=== PATIENT | female | born 1960 | race Caucasian/White ===

== ENCOUNTER 2017-12-06 11:23 | Observation (INO) | payer MEDICARE, MEDICAID ==
[2017-12-06 12:31] LABS: ABS Basophils 0.1 10^3/ul (0-0.2); ABS Eosinophils 0.4 10^3/ul (0-0.6); ABS Lymphocytes 1.3 10^3/ul (1.0-4.8); ABS Monocytes 0.6 10^3/ul (0-0.8); ABS Neutrophils 5.2 10^3/ul (1.5-7.7); ABS Nucleated RBC 0 10^3/ul; Eosinophil % 5.6 % (0-6); Hematocrit 37 % (35-47); Hemoglobin 11.9 g/dl (12.0-16.0); Lymphocyte % 16.9 % (25-47); Mean Corpuscular HGB Conc 32 g/dl (31-36); Mean Corpuscular Hemoglobin 24 pg (27-31); Mean Corpuscular Volume 76 fL (80-97); Mean Platelet Volume 8.1 um3 (7.4-10.4); Nucleated Red Blood Cells % 0; Platelet Count 311 10^3/ul (150-450); Red Blood Count 4.89 10^6/ul (4.0-5.4); Red Cell Distribution Width 16 % (10.5-15); White Blood Count 7.6 10^3/ul (3.5-10.8)
[2017-12-06] MEDS ORDERED: NS 0.9% 1000 ML* 1,000 ML IV ONE (12:43)
[2017-12-06] MEDS ORDERED: Metoclopramide IV* 5 MG/ML 2 ML VIAL IV ONE (12:43)
[2017-12-06 13:08] LABS: EGFR Non-African American 58.9 (>60)
[2017-12-06 13:32] LABS: Urine Appearance Cloudy; Urine Blood Negative (Negative); Urine Color Yellow; Urine Ketones Negative (Negative); Urine Protein Negative (Negative); Urine Red Blood Cell Absent (Absent); Urine Urobilinogen Negative (Negative); Urine White Blood Cell 3+(>20/hpf) (Absent)
[2017-12-06 13:42] LABS: INR 1.06 (0.77-1.02)
[2017-12-06] MEDS ORDERED: Iodixanol* (CONTRAST) 320 MG/ML 100 ML SDV IV ONE (14:48)
[2017-12-06] MEDS ORDERED: Promethazine INJ(RESTRICTED)* 25 MG/ML 1 ML VIAL IV ONE (15:12)
[2017-12-06] MEDS ORDERED: Ondansetron INJ* 2 MG/ML VIAL IV ONE (15:21)
[2017-12-06] MEDS ORDERED: Ondansetron 40 MG VIAL* 2 MG/ML 20 ML VIAL IV ONE (15:30)
--- NOTE | 2017-12-06 16:40 | RAD ---
Indication: Colon cancer, abdominal pain, nausea and vomiting. Contrast: Administered 82.0 ml of Contrast -- mg/ml CTA of the chest was performed after IV contrast administration. Coronal and sagittal reconstructed images were obtained. There are no prior studies available for comparison. The inferior thyroid lobes demonstrates a large hypodense lesion in the lower pole of the left lobe measuring up to 2.5 cm. Correlation with thyroid ultrasound is suggested a nonemergent basis. The pulmonary arterial tree is well opacified. There are no filling defects present to suggest pulmonary embolus. The aorta demonstrates no evidence of aortic dissection. No aneurysmal dilatation is noted. The trachea and major bronchi appear patent. The lung brenner demonstrate no evidence of pleural fluid, nodules or masses. Heart is of normal size without evidence of pericardial effusion. The bony structures are grossly unremarkable. CT of the abdomen and pelvis was performed after oral and IV contrast administration. The liver is normal in size. There are multiple low density lesions scattered throughout both lobes of the liver consistent with metastatic disease. In the dome of the right lobe the largest lesion measures up to 2.1 cm. Lesion in the medial segment of left lobe measures up to 10 mm. Inferior right lobe is an additional lesion measuring 18 mm. Posterior right lobe measures up to 18 mm. Other smaller noncystic lesions are noted in the liver. The spleen is normal in size. The pancreas demonstrates no mass or pancreatic duct dilatation. The common duct is not dilated. The patient is status post cholecystectomy. No retroperitoneal adenopathy is noted. No adrenal masses are noted. The kidneys demonstrate symmetric nephrograms without hydronephrosis. No dilated loops of bowel are noted. Aorta and inferior vena cava are unremarkable. No retroperitoneal adenopathy is noted. There is diverticulosis of the sigmoid colon without definite evidence of diverticulitis. The appendix is grossly unremarkable. There is a right ovarian cyst measuring up to 3.5 cm. The uterus and left ovary are unremarkable. Urinary bladder is unremarkable. No hernias are noted. No pelvic adenopathy is identified. The urinary bladder is unremarkable. There is a right ovarian cyst measuring up to 3.5 cm. IMPRESSION: No evidence of pulmonary embolus is noted. No evidence of aortic dissection is noted. Multiple low density lesions in the liver consistent with metastatic disease. No prior study is available for comparison. Patient is status post cholecystectomy. There is a low density mass in the left lobe of the thyroid. This measures up to 2.5 cm.
[2017-12-06] MEDS ORDERED: Aspirin 81 mg CHEW TAB* 81 MG TAB.CHEW PO ONE (17:23)
--- NOTE | 2017-12-06 17:57 | ED ---
Carlos Walton Jennifer, scribed for Chelsea Santamaria MD on 12/06/17 at 1234 . HPI Chest Pain - HPI Summary HPI Summary: The patient is a 57 year old female who presents with nausea and vomiting 2-3 weeks ago with newly developed chest pain about one hour ago. The patient describes the chest pain as constant tightness that increases and decreases in severity. She additionally complains of trouble breathing, abdominal pain, and decreased appetite. The patient has a history of colon cancer and is currently being treated. She denies fever. - History of Current Complaint Chief Complaint: EDChestPainROMI Time Seen by Provider: 12/06/17 12:11 Hx Obtained From: Patient Onset/Duration: Started Hours Ago - chest pain began one hour ago, Started Weeks Ago - nausea, vomiting began 2-3 weeks ago, Still Present, Worse Since Timing: Constant Initial Severity: Severe Current Severity: Severe Pain Intensity: 10 Pain Scale Used: 0-10 Numeric Chest Pain Location: Left Anterior Chest Pain Radiates: No Character: Tightness Aggravating Factor(s): Nothing Alleviating Factor(s): Nothing Associated Signs and Symptoms: Positive: Other: - nausea, vomiting, chest pain, trouble breathing, abdominal pain, decreased appetite. NEGATIVE: fever - Allergy/Home Medications Allergies/Adverse Reactions: Allergies Allergy/AdvReac Type Severity Reaction Status Date / Time aspirin Allergy Hives Verified 12/06/17 12:13 latex Allergy Hives Verified 12/06/17 11:30 Penicillins Allergy Anaphylatic Verified 12/06/17 11:30 Shock tramadol Allergy Anaphylatic Verified 12/06/17 11:30 Shock Home Medications: Home Medications Albuterol HFA INHALER* [Ventolin HFA Inhaler*] 2 puff INH .Q4-6H PRN 12/06/17 [ History Confirmed 12/06/17] Baclofen TAB* [Lioresal TAB*] 10 mg PO TID 12/06/17 [History Confirmed 12/06/17] Budesonide/Formote 80/4.5(NF) [Symbicort 80/4.5 (NF)] 2 puff INH BID 12/06/17 [ History Confirmed 12/06/17] Diclofenac Sodium EC TAB* [Voltaren EC TAB*] 50 mg PO BID WITH MEALS 12/06/17 [ History Confirmed 12/06/17] Exenatide VIAL (NF) [Bydureon (NF)] 2 mg SUBCUT WEEKLY 12/06/17 [History Confirmed 12/06/17] Lisinopril/HCTZ 20/25(NF) [Zestoretic 20/25(NF)] 1 tab PO DAILY 12/06/17 [ History Confirmed 12/06/17] LoraTADine TAB(NF) [Claritin 10 MG TAB(NF)] 10 mg PO BEDTIME PRN 12/06/17 [ History Confirmed 12/06/17] Meloxicam(NF) [Mobic(NF)] 15 mg PO DAILY 12/06/17 [History Confirmed 12/06/17] Ondansetron ODT TAB* [Zofran 4 MG Odt TAB*] 4 mg PO Q8H PRN 12/06/17 [History Confirmed 12/06/17] Pravastatin (NF) [Pravachol (NF)] 20 mg PO BEDTIME 12/06/17 [History Confirmed 12/06/17] Triamcinolone 0.025% CM(NF) [Kenalog Cream 0.025%*] 1 applic TOPICAL BID [History Confirmed 12/06/17] Umeclidin 62.5 MDI(NF) [Incruse ELLIPTA MDI (NF)] 1 puff INH DAILY 12/06/17 [ History Confirmed 12/06/17] amLODIPine TAB* [Norvasc 5 mg TAB*] 5 mg PO DAILY 12/06/17 [History Confirmed ] PMH/Surg Hx/FS Hx/Imm Hx Endocrine/Hematology History: Reports: Hx Diabetes Denies: Other Endocrine/Hematological Disorders - blood clots Cardiovascular History: Reports: Hx Hypertension Denies: Hx Myocardial Infarction - Cancer History Cancer Type, Location and Year: Colon Cancer - 2009 - Surgical History Surgery Procedure, Year, and Place: Cholecystectomy Infectious Disease History: No Infectious Disease History: Denies: Traveled Outside the [place] in Last 30 Days - Family History Known Family History: Negative: Renal Disease - Social History Alcohol Use: None Substance Use Type: Reports: None Smoking Status (MU): Unknown if Ever Smoked Review of Systems Positive: Other - Decreased appetite. Negative: Fever Positive: Chest Pain Positive: Other - Trouble breathing Positive: Abdominal Pain, Vomiting, Nausea All Other Systems Reviewed And Are Negative: Yes Physical Exam - Summary Physical Exam Summary: GENERAL: ~Patient is a well developed and nourished F who is lying comfortable in the stretcher. ~Patient is not in any acute respiratory distress. HEAD AND FACE: Normocephalic EYES: PERRLA, EOMI x 2. EARS: Hearing grossly intact. MOUTH: Oropharynx within normal limits. NECK: Supple, trachea is midline, no adenopathy, no JVD, no carotid bruit. CHEST: Symmetric, no tenderness at palpation LUNGS: Clear to auscultation bilaterally. No wheezing or crackles. CVS: Regular rate and rhythm, S1 and S2 present, no murmurs or gallops appreciated. ABDOMEN: Soft, diffuse tenderness to palpation, worse in epigastric area. Bowel sounds are normal. No abdominal abnormal pulsations. EXTREMITIES: Full ROM in all major joints, no edema, no cyanosis or clubbing. NEURO: Alert and oriented x 3. No acute neurological deficits. Speech is normal and follows commands. SKIN: Dry and warm Triage Information Reviewed: Yes Vital Signs On Initial Exam: Initial Vitals Temp Pulse Resp BP Pulse Ox 97.4 F 90 14 104/62 96 12/06/17 11:31 12/06/17 11:31 12/06/17 11:31 12/06/17 11:31 12/06/17 11:31 Vital Signs Reviewed: Yes Diagnostics - Vital Signs Vital Signs Temp Pulse Resp BP Pulse Ox 12/06/17 11:31 97.4 F 90 14 104/62 96 - Laboratory Lab Results: Lab Results 12/06/17 12/06/17 12/06/17 Range/Units 12:04 12:04 12:04 WBC 7.6 (3.5-10.8) 10^3/ul RBC 4.89 (4.0-5.4) 10^6/ul Hgb 11.9 L (12.0-16.0) g/dl Hct 37 (35-47) % MCV 76 L (80-97) fL MCH 24 L (27-31) pg MCHC 32 (31-36) g/dl RDW 16 H (10.5-15) % Plt Count 311 (150-450) 10^3/ul MPV 8.1 (7.4-10.4) um3 Neut % (Auto) 68.3 (38-83) % Lymph % (Auto) 16.9 L (25-47) % Ripley % (Auto) 8.4 H (0-7) % Eos % (Auto) 5.6 (0-6) % Baso % (Auto) 0.8 (0-2) % Absolute Neuts (auto) 5.2 (1.5-7.7) 10^3/ul Absolute Lymphs (auto) 1.3 (1.0-4.8) 10^3/ul Absolute Monos (auto) 0.6 (0-0.8) 10^3/ul Absolute Eos (auto) 0.4 (0-0.6) 10^3/ul Absolute Basos (auto) 0.1 (0-0.2) 10^3/ul Absolute Nucleated RBC 0 10^3/ul Nucleated RBC % 0 INR (Anticoag Therapy) (0.77-1.02) APTT (26.0-36.3) seconds Sodium 138 L (139-145) mmol/L Potassium 3.5 (3.5-5.0) mmol/L Chloride 100 L (101-111) mmol/L Carbon Dioxide 31 (22-32) mmol/L Anion Gap 7 (2-11) mmol/L BUN 20 (6-24) mg/dL Creatinine 0.98 H (0.51-0.95) mg/dL Est GFR ( Amer) 75.8 (>60) Est GFR (Non-Af Amer) 58.9 (>60) BUN/Creatinine Ratio 20.4 H (8-20) Glucose 130 H (70-100) mg/dL Lactic Acid 1.1 (0.5-2.0) mmol/L Calcium 9.7 (8.6-10.3) mg/dL Total Bilirubin 1.10 H (0.2-1.0) mg/dL AST 43 H (13-39) U/L ALT 55 H (7-52) U/L Alkaline Phosphatase 105 H (34-104) U/L Troponin I 0.00 (<0.04) ng/mL Total Protein 7.2 (6.4-8.9) g/dL Albumin 3.9 (3.2-5.2) g/dL Globulin 3.3 (2-4) g/dL Albumin/Globulin Ratio 1.2 (1-3) Lipase 26 (11.0-82.0) U/L Urine Color Urine Appearance Urine pH (5-9) Ur Specific Distant (1.010-1.030) Urine Protein (Negative) Urine Ketones (Negative) Urine Blood (Negative) Urine Nitrate (Negative) Urine Bilirubin (Negative) Urine Urobilinogen (Negative) Ur Leukocyte Esterase (Negative) Urine WBC (Auto) (Absent) Urine RBC (Auto) (Absent) Ur Squamous Epith Cells (Absent) Urine Bacteria (Absent) Urine Glucose (Negative) 12/06/17 12/06/17 Range/Units 13:08 13:15 WBC (3.5-10.8) 10^3/ul RBC (4.0-5.4) 10^6/ul Hgb (12.0-16.0) g/dl Hct (35-47) % MCV (80-97) fL MCH (27-31) pg MCHC (31-36) g/dl RDW (10.5-15) % Plt Count (150-450) 10^3/ul MPV (7.4-10.4) um3 Neut % (Auto) (38-83) % Lymph % (Auto) (25-47) % Ripley % (Auto) (0-7) % Eos % (Auto) (0-6) % Baso % (Auto) (0-2) % Absolute Neuts (auto) (1.5-7.7) 10^3/ul Absolute Lymphs (auto) (1.0-4.8) 10^3/ul Absolute Monos (auto) (0-0.8) 10^3/ul Absolute Eos (auto) (0-0.6) 10^3/ul Absolute Basos (auto) (0-0.2) 10^3/ul Absolute Nucleated RBC 10^3/ul Nucleated RBC % INR (Anticoag Therapy) 1.06 H (0.77-1.02) APTT 28.8 (26.0-36.3) seconds Sodium (139-145) mmol/L Potassium (3.5-5.0) mmol/L Chloride (101-111) mmol/L Carbon Dioxide (22-32) mmol/L Anion Gap (2-11) mmol/L BUN (6-24) mg/dL Creatinine (0.51-0.95) mg/dL Est GFR ( Amer) (>60) Est GFR (Non-Af Amer) (>60) BUN/Creatinine Ratio (8-20) Glucose (70-100) mg/dL Lactic Acid (0.5-2.0) mmol/L Calcium (8.6-10.3) mg/dL Total Bilirubin (0.2-1.0) mg/dL AST (13-39) U/L ALT (7-52) U/L Alkaline Phosphatase (34-104) U/L Troponin I (<0.04) ng/mL Total Protein (6.4-8.9) g/dL Albumin (3.2-5.2) g/dL Globulin (2-4) g/dL Albumin/Globulin Ratio (1-3) Lipase (11.0-82.0) U/L Urine Color Yellow Urine Appearance Cloudy Urine pH 5.0 (5-9) Ur Specific Distant 1.020 (1.010-1.030) Urine Protein Negative (Negative) Urine Ketones Negative (Negative) Urine Blood Negative (Negative) Urine Nitrate Negative (Negative) Urine Bilirubin Negative (Negative) Urine Urobilinogen Negative (Negative) Ur Leukocyte Esterase 3+ A (Negative) Urine WBC (Auto) 3+(>20/hpf) A (Absent) Urine RBC (Auto) Absent (Absent) Ur Squamous Epith Cells Present A (Absent) Urine Bacteria Absent (Absent) Urine Glucose 3+(>=500 mg/dl) A (Negative) Result Diagrams: 12/06/17 12:04 12/06/17 12:04 Lab Statement: Any lab studies that have been ordered have been reviewed, and results considered in the medical decision making process. - CT Chest/Abdomen/Pelvis CTA CT Interpretation: No Acute Changes - No evidence of pulmonary embolus is noted. No evidence of aortic dissection is noted. Multiple low density lesions in the liver consistent with metastatic disease. No prior study is available for comparison. Patient is status post cholecystectomy. There is a low density mass in the left lobe of the thyroid. This measures up to 2.[address] Santamaria has reviewed this report. CT Interpretation Completed By: Radiologist - EKG 1139 Cardiac Rate: NL EKG Rhythm: Sinus Rhythm - 90 bpm EKG Interpretation: left axid deviation Chest Pain Course/Dx - Course Course Of Treatment: The patient is a 57 year old female who presents with nausea and vomiting 2-3 weeks ago with newly developed chest pain about one hour ago. In the ED course the patient was given Reglan and IV fluids. Bloodwork and urinalysis were obtained. Chest/Abdomen/Pelvis CTA showed No evidence of pulmonary embolus is noted. No evidence of aortic dissection is noted. Multiple low density lesions in the liver consistent with metastatic disease. No prior study is available for comparison. Patient is status post cholecystectomy. There is a low density mass in the left lobe of the thyroid. This measures up to 2.5 cm. The patient was diagnosed with chest pain and abdominal pain. The patient is admitted to [facility]. [facility] - Diagnoses Provider Diagnoses: Chest pain, Abdominal pain - Provider Notifications Discussed Care Of Patient With: Leela Guallpa Time Discussed With Above Provider: 17:00 Instructed by Provider To: Admit As Inpatient Discharge - Sign-Out/Discharge Documenting (check all that apply): Discharge/Admit/Transfer - Discharge Plan Condition: Good Disposition: ADMITTED TO [facility] Referrals: No Primary Care Phys,NOPCP [Medical Doctor] - - Billing Disposition and Condition Condition: GOOD Disposition: HOSP-[facility] The documentation as recorded by the Carlos rome Jennifer accurately reflects the service I personally performed and the decisions made by , Chelsea Santamaria MD.
[2017-12-06] MEDS ORDERED: Al Hydrox/Mg Hydrox/Simet LIQ* 30 ML UDC PO PRN (18:22)
[2017-12-06] MEDS ORDERED: Acetaminophen TAB* 325 MG PO PRN (18:22)
[2017-12-06] MEDS ORDERED: Ondansetron INJ* 2 MG/ML VIAL IV PRN (18:22)
[2017-12-06] MEDS ORDERED: NS 0.9% 1000 ML* 1,000 ML IV SCH (18:30)
[2017-12-06] MEDS: Baclofen TAB* 10 MG PO SCH (21:47)
[2017-12-06] MEDS: Heparin VIAL(*) 5000 UNITS/ML VIAL (FIVE THOUSAND) SUBCUT SCH (21:47)
[2017-12-06] MEDS ORDERED: Ciprofloxacin 400MG IVPREMIX(* 400 MG/200 ML BAG IVPB SCH (22:00)
[2017-12-06] MEDS: Mometasone/Formoter 100/5 MDI INH SCH (22:31)
[2017-12-06] MEDS: Albuterol HFA INHALER* 8 gm MDI INH PRN (22:31)
[2017-12-06] MEDS ORDERED: diPHENhydraMINE PO* 25 MG PO PRN (23:21)
[2017-12-06] MEDS ORDERED: Famotidine TAB* 20 MG PO ONE (23:21)
[2017-12-06] MEDS: cefTRIAXone VIAL(*) 1,000 MG in NS 0.9% 50 ML* 50 ML IVPB SCH (23:45)
--- NOTE | 2017-12-07 00:33 | HP ---
ADDENDUM NOW INCLUDED ON THIS REPORT HISTORY AND PHYSICAL: DATE OF ADMISSION: 12/06/17 TIME OF ADMISSION: 6:15 p.m. PRIMARY CARE PHYSICIAN: [facility]. CHIEF COMPLAINT: Chest pain, nausea, and vomiting for 1 month. HISTORY OF PRESENT ILLNESS: This is a 57-year-old female with history of metastatic colon cancer who is currently undergoing chemotherapy at [facility] who presents today with 1 month of nausea, vomiting, and chest pain. It was the chest pain that caused her to come to emergency department today. The pain is located on the left side of her chest and is described as a squeezing pain. It occurred when she was riding in the car with her daughter today at 11 a.m. The pain does not radiate. It is associated with shortness of breath. It is usually relieved with inhalers; however, today, she had not her inhaler with her. So, she came to the emergency department. It resolved when she was resting in the emergency department. No medication in particular made it better. It is not reproduced when she exerts herself. It is not associated with diaphoresis, lightheadedness, or palpitation. It has been occurring every day once a day around the same time in the morning for approximately 1 month. She reports that she has been to [facility] for the same thing, but she is not sure what tests they have done and no etiology has been uncovered. She also reports that during the same timeframe over the past month, she has had decreased appetite, a 10-pound weight loss and constant nausea and vomiting. She states she is unable to keep any food down except bananas and she has round the clock nausea and vomiting and states that her oncologist does not believe it is related to the cancer nor to the chemotherapy. Of note, she has been on the same chemotherapy for 8 years. PAST MEDICAL HISTORY: 1. Colon cancer, status post colectomy 8 years ago, now on chemotherapy with a once monthly injection of which she does not know the name. She last had chemotherapy injection on 11/22/17. She has known liver mets. 2. Cholecystectomy. 3. Diabetes mellitus. 4. Hypertension. 5. Asthma. 6. COPD. HOME MEDICATIONS: 1. Albuterol 2 puffs inhaled q.4 p.r.n. wheezing. 2. Norvasc 5 mg daily. 3. Baclofen 10 mg t.i.d. 4. Symbicort 2 puffs b.i.d. 5. Voltaren 50 mg b.i.d. 6. Exenatide 2 mg subcutaneous weekly. 7. Lisinopril/HCTZ 20/25 one tab daily. 8. Loratadine 10 mg q.h.s. 9. Mobic 15 mg daily. 10. Zofran 4 mg q.8 p.r.n. nausea. 11. Pravastatin 20 mg q.h.s. 12. Triamcinolone topical b.i.d. 13. Ellipta 1 puff inhaled daily. SOCIAL HISTORY: She lives with her son in [place]. She is retired from working at [employer]. She watches her grandson regularly and is fairly active since he is a toddler. She has never been a smoker and she has never been a drinker. REVIEW OF SYSTEMS: She denies fevers, chills. Positive for nausea and vomiting. Positive for diarrhea in the past week. Negative for headache, blurry vision, hemoptysis, abdominal pain, weakness, numbness, or tingling. PHYSICAL EXAMINATION GENERAL: Alert female, in no distress. VITAL SIGNS: Temperature 97.4, heart rate 96, respiratory rate 14, pulse ox 94 % on room air, blood pressure 108/92. HEENT: Pupils equal, round, and reactive to light. No conjunctival injection. No sinus tenderness. Moist oral mucosa. No pharyngeal exudates or erythema. NECK: No cervical or supraclavicular lymphadenopathy. No JVP. LUNGS: Clear bilaterally. No wheezes or rhonchi. CHEST: Tachycardic. No murmurs. PMI nondisplaced. ABDOMEN: Soft, nontender, nondistended. No CVA tenderness. EXTREMITIES: No rashes or ulcers. No edema. NEUROLOGIC: Strength 5/5 throughout. Sensation intact. LABORATORY DATA: Sodium 138, potassium 3.5, chloride 100, bicarb 31, BUN 20, creatinine 0.98, glucose 130. Total bilirubin 1.10. AST 43, ALT 55, alk phos 105. Troponin 0.00. Urinalysis, 3+ leuk esterase, 3+ white blood cells, 3+ glucose. White blood cells 7.6, hemoglobin 11.9, platelets 311. IMAGING: CTA chest, abdomen, and pelvis shows no evidence of PE, no evidence of aortic dissection, multiple low density lesions in the liver consistent with metastatic disease. No prior study available for comparison. The patient is status post cholecystectomy. There is a low-density mass in the left lobe of the thyroid. This measures 2.5 cm. ASSESSMENT AND PLAN: This is a 57-year-old female, currently undergoing chemotherapy for metastatic colon cancer who presents with 1 month of chest pain , nausea, and vomiting. 1. Atypical chest pain. Her symptoms are atypical; however, given her history of diabetes and risk factors, underlying coronary artery disease is certainly possible; however, given the fact that this pain has been going on for 1 month, I do not believe this is acute coronary syndrome and trending troponins is unlikely to be revealing. Since her pain has been ongoing for 1 month and is related in time course to 1 month of nausea and vomiting as well, I suspect she has an esophagitis or other GI etiology as opposed to acute coronary syndrome. Her EKG has no ischemic changes and she has good exercise tolerance without angina. I wanted her on telemetry overnight and check another troponin, but I have a low suspicion for a cardiac etiology of her chest pain. I would also like to get her records from Oncology in [place] to understand the side effects of the chemotherapy she is on right now, which should be included in the differential of her symptoms. 2. One month of nausea and vomiting. Again, the time course does not coincide with her chemotherapy since she just got a chemotherapy one and a half weeks ago and nausea, vomiting began 1 month ago and she has been on this chemotherapy for 8 years. I would like to check an A1c and consider gastroparesis in the differential. She said she has had an upper endoscopy recently at [facility], which was unremarkable. I will attempt to get the records from them and order a gastric emptying study for tomorrow. I will control her symptoms with Zofran. She has a normal albumin and normal electrolytes, which do not coincide with 1 month of vomiting and weight loss. 3. Elevated liver enzymes. I suspect this is related to liver mets as seen on her CT angio. She has no gallbladder. 4. Diabetes. I will hold her home medications and treat her with a sliding scale. 5. Hypertension. Continue HCTZ, amlodipine, and lisinopril. 6. Asthma/chronic obstructive pulmonary disease. The diagnosis is unclear. She said she has had asthma since childhood and has been diagnosed with chronic obstructive pulmonary disease, but has never been a smoker. I will continue her home inhalers. 7. DVT prophylaxis. Heparin subcutaneous. 8. Full code. TIME SPENT: Greater than 60 minutes were spent on this admission with 30 minutes spent [id number] with the patient. ADDENDUM: ASSESSMENT AND PLAN: Thyroid nodule. This was incidentally noted on her CT angio of her chest, abdomen and pelvis and needs to be monitored and followed up as an outpatient. [id number]/[facility]PS #: [id number]/CPS #: [id number] LIZET
--- NOTE | 2017-12-07 01:14 | HP ---
HISTORY AND PHYSICAL: ADDENDUM: ASSESSMENT AND PLAN: Thyroid nodule. This was incidentally noted on her CT angio of her chest, abdomen and pelvis and needs to be monitored and followed up as an outpatient. [id number]/[facility] #: [id number] MTDD
[2017-12-07] MEDS: Heparin VIAL(*) 5000 UNITS/ML VIAL (FIVE THOUSAND) SUBCUT SCH ×3 (05:10→21:35)
[2017-12-07 05:29] LABS: ABS Basophils 0 10^3/ul (0-0.2); ABS Eosinophils 0.3 10^3/ul (0-0.6); ABS Lymphocytes 0.9 10^3/ul (1.0-4.8); ABS Monocytes 0.5 10^3/ul (0-0.8); ABS Neutrophils 3.4 10^3/ul (1.5-7.7); ABS Nucleated RBC 0 10^3/ul; Eosinophil % 6.2 % (0-6); Hematocrit 33 % (35-47); Hemoglobin 10.3 g/dl (12.0-16.0); Lymphocyte % 18.2 % (25-47); Mean Corpuscular HGB Conc 31 g/dl (31-36); Mean Corpuscular Hemoglobin 24 pg (27-31); Mean Corpuscular Volume 76 fL (80-97); Nucleated Red Blood Cells % 0; Platelet Count 217 10^3/ul (150-450); Red Blood Count 4.34 10^6/ul (4.0-5.4); Red Cell Distribution Width 17 % (10.5-15); White Blood Count 5.2 10^3/ul (3.5-10.8)
[2017-12-07 05:48] LABS: EGFR Non-African American 68.5 (>60)
[2017-12-07] MEDS ORDERED: Potassium Chloride IV* 60 MEQ in NS 0.9% 500 ML* 500 ML IVPB ONE (07:00)
[2017-12-07] MEDS ORDERED: KCL 20 MEQ/100 ML IVPREMIX* 20 MEQ/100 ML BAG IV SCH (07:00)
[2017-12-07] MEDS: Hydrochlorothiazide TAB* 25 MG PO SCH (08:15)
[2017-12-07] MEDS: Diclofenac Sodium EC TAB* 25 MG PO SCH ×2 (08:16→17:24)
[2017-12-07] MEDS: Lisinopril TAB* 10 MG PO SCH (08:16)
[2017-12-07] MEDS: Baclofen TAB* 10 MG PO SCH ×3 (08:16→20:18)
[2017-12-07] MEDS: amLODIPine TAB* 5 MG PO SCH (08:16)
[2017-12-07] MEDS: Albuterol HFA INHALER* 8 gm MDI INH PRN (10:42)
[2017-12-07] MEDS: Mometasone/Formoter 100/5 MDI INH SCH ×2 (10:43→20:22)
--- NOTE | 2017-12-07 14:46 | RAD ---
INDICATION: Nausea and vomiting for one month. Comparison: Comparison is made with a prior CT of the abdomen and pelvis from December 06, 2017. Technique: The patient was given an intravenous injection of 1.0 mCi of technetium 99m sulfur colloid mixed with oatmeal. Multiple images of the left upper quadrant were obtained. FINDINGS: There is normal distribution of radiopharmaceutical. The stomach appeared to empty normally. The half-time for emptying was 49 minutes which is within normal limits. IMPRESSION: NORMAL STUDY.
[2017-12-07] MEDS ORDERED: Magnesium Sulfate 2 GM IV* 2 GM/50 ML BAG IVPB ONE (15:53)
--- NOTE | 2017-12-07 16:16 | PN ---
Subjective Date of Service: 12/07/17 Interval History: Feels much better. No nausea. Ate 2 meals today without difficulty. She has no antiemetics at home, can't remember the last time she used one at home. Objective Active Medications: Acetaminophen (Tylenol Tab*) 650 mg PO Q4H PRN PRN Reason: FEVER/PAIN Al Hydrox/Mg Hydrox/Simethicone (Maalox Plus*) 30 ml PO Q6H PRN PRN Reason: INDIGESTION Albuterol (Ventolin Hfa Inhaler*) 2 puff INH Q4H PRN PRN Reason: SHORTNESS OF BREATH Last Admin: 12/07/17 10:42 Dose: 2 puff Amlodipine Besylate (Norvasc Tab*) 5 mg PO DAILY [facility] Last Admin: 12/07/17 08:16 Dose: 5 mg Baclofen (Lioresal Tab*) 10 mg PO TID [facility] Last Admin: 12/07/17 13:50 Dose: 10 mg Diclofenac Sodium (Voltaren Ec Tab*) 50 mg PO BID WITH MEALS [facility] Last Admin: 12/07/17 08:16 Dose: Not Given Diphenhydramine HCl (Benadryl Po*) 25 mg PO Q6H PRN PRN Reason: ITCHING Last Admin: 12/06/17 23:45 Dose: 25 mg Heparin Sodium (Porcine) (Heparin Vial(*)) 5,000 units SUBCUT Q8HR [facility] Last Admin: 12/07/17 13:50 Dose: 5,000 units Hydrochlorothiazide (Hydrodiuril Tab*) 25 mg PO DAILY [facility] Last Admin: 12/07/17 08:15 Dose: 25 mg Ceftriaxone Sodium 1,000 mg/ (Sodium Chloride) 50 mls @ 200 mls/hr IVPB 2200 [facility] Last Admin: 12/06/17 23:45 Dose: 200 mls/hr Lisinopril (Prinivil Tab*) 20 mg PO DAILY [facility] Last Admin: 12/07/17 08:16 Dose: 20 mg Mometasone Furoate/Formoterol Fumar (Dulera 100/5 Mdi*) 2 puff INH BID [facility] Last Admin: 12/07/17 10:43 Dose: 2 puff Ondansetron HCl (Zofran Inj*) 4 mg IV Q4H PRN PRN Reason: NAUSEA/VOMITING Vital Signs - 8 hr 05/09/18 05/09/18 05/09/18 10:51 13:38 15:45 Temperature 97.7 F 98.2 F 97.7 F Pulse Rate 85 90 95 Respiratory 16 20 16 Rate Blood Pressure 111/66 105/73 102/70 (mmHg) O2 Sat by Pulse 98 97 Oximetry Oxygen Devices in Use Now: None Appearance: Alert, sitting up in bed. In good spirits. Looks comfortable. Eyes: No Scleral Icterus Respiratory: Symmetrical Chest Expansion and Respiratory Effort, Clear to Auscultation, Clear to Percussion Cardiovascular: NL Sounds; No Murmurs; No JVD, RRR, No Edema, - Extremities: No Edema, No Clubbing, Cyanosis, - Skin: No Rash or Ulcers, No Nodules or Sclerosis, - Neurological: Alert and Oriented x 3, NL Sensation Result Diagrams: 12/07/17 05:13 12/07/17 05:13 Additional Lab and Data: Lab Results 12/06/17 12/06/17 12/06/17 Range/Units 12:04 12:04 12:04 WBC 7.6 (3.5-10.8) 10^3/ul RBC 4.89 (4.0-5.4) 10^6/ul Hgb 11.9 L (12.0-16.0) g/dl Hct 37 (35-47) % MCV 76 L (80-97) fL MCH 24 L (27-31) pg MCHC 32 (31-36) g/dl RDW 16 H (10.5-15) % Plt Count 311 (150-450) 10^3/ul MPV 8.1 (7.4-10.4) um3 Neut % (Auto) 68.3 (38-83) % Lymph % (Auto) 16.9 L (25-47) % Bay % (Auto) 8.4 H (0-7) % Eos % (Auto) 5.6 (0-6) % Baso % (Auto) 0.8 (0-2) % Absolute Neuts (auto) 5.2 (1.5-7.7) 10^3/ul Absolute Lymphs (auto) 1.3 (1.0-4.8) 10^3/ul Absolute Monos (auto) 0.6 (0-0.8) 10^3/ul Absolute Eos (auto) 0.4 (0-0.6) 10^3/ul Absolute Basos (auto) 0.1 (0-0.2) 10^3/ul Absolute Nucleated RBC 0 10^3/ul Nucleated RBC % 0 INR (Anticoag Therapy) (0.77-1.02) APTT (26.0-36.3) seconds Sodium 138 L (139-145) mmol/L Potassium 3.5 (3.5-5.0) mmol/L Chloride 100 L (101-111) mmol/L Carbon Dioxide 31 (22-32) mmol/L Anion Gap 7 (2-11) mmol/L BUN 20 (6-24) mg/dL Creatinine 0.98 H (0.51-0.95) mg/dL Est GFR ( Amer) 75.8 (>60) Est GFR (Non-Af Amer) 58.9 (>60) BUN/Creatinine Ratio 20.4 H (8-20) Glucose 130 H (70-100) mg/dL Lactic Acid 1.1 (0.5-2.0) mmol/L Calcium 9.7 (8.6-10.3) mg/dL Total Bilirubin 1.10 H (0.2-1.0) mg/dL AST 43 H (13-39) U/L ALT 55 H (7-52) U/L Alkaline Phosphatase 105 H (34-104) U/L Troponin I 0.00 (<0.04) ng/mL Total Protein 7.2 (6.4-8.9) g/dL Albumin 3.9 (3.2-5.2) g/dL Globulin 3.3 (2-4) g/dL Albumin/Globulin Ratio 1.2 (1-3) Lipase 26 (11.0-82.0) U/L Urine Color Urine Appearance Urine pH (5-9) Ur Specific [place] (1.010-1.030) Urine Protein (Negative) Urine Ketones (Negative) Urine Blood (Negative) Urine Nitrate (Negative) Urine Bilirubin (Negative) Urine Urobilinogen (Negative) Ur Leukocyte Esterase (Negative) Urine WBC (Auto) (Absent) Urine RBC (Auto) (Absent) Ur Squamous Epith Cells (Absent) Urine Bacteria (Absent) Urine Glucose (Negative) 12/06/17 12/06/17 Range/Units 13:08 13:15 WBC (3.5-10.8) 10^3/ul RBC (4.0-5.4) 10^6/ul Hgb (12.0-16.0) g/dl Hct (35-47) % MCV (80-97) fL MCH (27-31) pg MCHC (31-36) g/dl RDW (10.5-15) % Plt Count (150-450) 10^3/ul MPV (7.4-10.4) um3 Neut % (Auto) (38-83) % Lymph % (Auto) (25-47) % Bay % (Auto) (0-7) % Eos % (Auto) (0-6) % Baso % (Auto) (0-2) % Absolute Neuts (auto) (1.5-7.7) 10^3/ul Absolute Lymphs (auto) (1.0-4.8) 10^3/ul Absolute Monos (auto) (0-0.8) 10^3/ul Absolute Eos (auto) (0-0.6) 10^3/ul Absolute Basos (auto) (0-0.2) 10^3/ul Absolute Nucleated RBC 10^3/ul Nucleated RBC % INR (Anticoag Therapy) 1.06 H (0.77-1.02) APTT 28.8 (26.0-36.3) seconds Sodium (139-145) mmol/L Potassium (3.5-5.0) mmol/L Chloride (101-111) mmol/L Carbon Dioxide (22-32) mmol/L Anion Gap (2-11) mmol/L BUN (6-24) mg/dL Creatinine (0.51-0.95) mg/dL Est GFR ( Amer) (>60) Est GFR (Non-Af Amer) (>60) BUN/Creatinine Ratio (8-20) Glucose (70-100) mg/dL Lactic Acid (0.5-2.0) mmol/L Calcium (8.6-10.3) mg/dL Total Bilirubin (0.2-1.0) mg/dL AST (13-39) U/L ALT (7-52) U/L Alkaline Phosphatase (34-104) U/L Troponin I (<0.04) ng/mL Total Protein (6.4-8.9) g/dL Albumin (3.2-5.2) g/dL Globulin (2-4) g/dL Albumin/Globulin Ratio (1-3) Lipase (11.0-82.0) U/L Urine Color Yellow Urine Appearance Cloudy Urine pH 5.0 (5-9) Ur Specific [place] 1.020 (1.010-1.030) Urine Protein Negative (Negative) Urine Ketones Negative (Negative) Urine Blood Negative (Negative) Urine Nitrate Negative (Negative) Urine Bilirubin Negative (Negative) Urine Urobilinogen Negative (Negative) Ur Leukocyte Esterase 3+ A (Negative) Urine WBC (Auto) 3+(>20/hpf) A (Absent) Urine RBC (Auto) Absent (Absent) Ur Squamous Epith Cells Present A (Absent) Urine Bacteria Absent (Absent) Urine Glucose 3+(>=500 mg/dl) A (Negative) Assess/Plan/Problems-Billing Assessment: - Patient Problems (1) Chest pain Current Visit: Yes Status: Acute Code(s): R07.9 - CHEST PAIN, UNSPECIFIED SNOMED Code(s): 89498891 Comment: troponin x 3 wnl. Exercise nuclear stress test for 12/08. (2) Colon cancer Current Visit: Yes Status: Acute Comment: I spoke with [facility] REPA[facility]ER at Dr. Abilio Elias' s office . 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 Sandostatin LAR 30 mg last given 11/22, due again about 12/22. ALT 100 (NL < 33), AST 126 (NL K 32) in their lab recently. (3) Diabetes Current Visit: Yes Status: Acute Code(s): E11.9 - TYPE 2 DIABETES MELLITUS WITHOUT COMPLICATIONS SNOMED Code(s): 13777694 Comment: Resume exenatide on discharge. Lispro by SS here.
[2017-12-07] MEDS ORDERED: Dextrose 50% Syringe 50 ML* 25 GM/50 ML SYRINGE IV PUSH PRN (16:18)
[2017-12-07] MEDS: Insulin LISPRO* 1 UNITS UNIT SUBCUT SCH ×2 (17:24→20:17)
[2017-12-07] MEDS: cefTRIAXone VIAL(*) 1,000 MG in NS 0.9% 50 ML* 50 ML IVPB SCH (21:36)
[2017-12-08] MEDS: Heparin VIAL(*) 5000 UNITS/ML VIAL (FIVE THOUSAND) SUBCUT SCH (05:59)
[2017-12-08] MEDS: Mometasone/Formoter 100/5 MDI INH SCH (08:30)
[2017-12-08] MEDS: Lisinopril TAB* 10 MG PO SCH (08:48)
[2017-12-08] MEDS: Diclofenac Sodium EC TAB* 25 MG PO SCH (08:48)
[2017-12-08] MEDS: amLODIPine TAB* 5 MG PO SCH (08:48)
[2017-12-08] MEDS: Insulin LISPRO* 1 UNITS UNIT SUBCUT SCH ×2 (08:48→11:39)
[2017-12-08] MEDS: Baclofen TAB* 10 MG PO SCH (08:48)
[2017-12-08] MEDS: Hydrochlorothiazide TAB* 25 MG PO SCH (08:48)
[2017-12-08 11:21] VITALS: BP 103/67
--- NOTE | 2017-12-09 04:17 | DS ---
DISCHARGE SUMMARY: DATE OF ADMISSION: DATE OF DISCHARGE: 12/08/17 HISTORY OF PRESENT ILLNESS: This 57-year-old woman presented with chest pain, nausea, and vomiting. She has vomited many times a day for a few weeks. She had some pain in the left side of her chest described as squeezing pain. She was riding in the car with her daughter. She had some shortness of breath which is usually relieved with inhalers, but she happened to not have her inhaler with her on the day of admission. Rest of the history is detailed in the admission note. The patient was monitored on the telemetry unit. Three troponins were done, all within normal limits. She had a gastric emptying study. This showed normal gastric emptying, the half time for emptying was 49 minutes which is within normal limits. We had plan of doing a nuclear stress test, but she could not have nuclear contrast due to the previous gastric emptying study and we would have to wait another day. I am not sure at this point that stress testing is essential. It certainly could be done as an outpatient on a less acute basis. I think her chest pain was related to the persistent retching and vomiting. It was completely resolved while in the hospital. I note she walks an hour and a half to 2 hours every day without any difficulty. FINAL DIAGNOSES: 1. Carcinoid tumor of the colon, on Sandostatin LAR therapy. 2. Diabetes. 3. Abnormal liver function tests. DISCHARGE MEDICATIONS: 1. Triamcinolone 0.025% b.i.d. to affected areas. 2. Amlodipine 5 mg daily. 3. Pravastatin 20 mg h.s. 4. Diclofenac 50 mg b.i.d. with meals. 5. Loratadine 10 mg h.s. p.r.n. 6. Lisinopril/hydrochlorothiazide 20/25 one daily. 7. Meloxicam 15 mg p.o. 8. Baclofen 10 mg t.i.d. 9. Budesonide/formoterol 80/4.5 two puffs b.i.d. 10. Umeclidinium 62.5 one puff daily. 11. Ondansetron ODT 4 mg every 8 hours p.r.n. 12. Albuterol inhaler 2 puffs every 4 hours p.r.n. 13. Exenatide 2 mg subcu weekly. [id number]/[facility] #: [id number]
== END 2017-12-08 13:19 | disposition home or self-care (01) ==
LOC: ED 11:23 → MEDTELE 18:22
PROVIDERS: ADMIT Internal Medicine; ATTEND Internal Medicine
DX: C7A.029 Malignant carcinoid tumor of the large intestine, unspecified portion (principal); R07.89 Other chest pain; R11.2 Nausea with vomiting, unspecified; J44.9 Chronic obstructive pulmonary disease, unspecified; J45.909 Unspecified asthma, uncomplicated; E11.9 Type 2 diabetes mellitus without complications; R06.02 Shortness of breath; R10.9 Unspecified abdominal pain; R94.5 Abnormal results of liver function studies; I10 Essential (primary) hypertension; Z90.49 Acquired absence of other specified parts of digestive tract; Z92.21 Personal history of antineoplastic chemotherapy
CPT/HCPCS: 36415; 71275; 74177; 78264; 80048; 80053; 80076; 81003; 81015; 83036; 83605; 83690; 84484; 85025; 85610; 85730; 87077; 87086; 93005; 94640; 96374; 96375; 99285; A9270-GY; A9541; G0378; J0696; J0744; J1644; J2405; J2550; J2765; J3480; Q9967

== ENCOUNTER 2023-12-12 11:55 | Observation (INO) ==
[2023-12-12] MEDS: Morphine 4 MG/ML VIAL (1 ml) IV ONE (13:20)
[2023-12-12 13:23] LABS: ABS Basophils 0.1 10^3/uL (0.0-0.1); ABS Lymphocytes 1.2 10^3/uL (1.0-4.8); ABS Monocytes 0.8 10^3/uL (0.0-0.9); ABS Neutrophils 4.7 10^3/uL (1.5-7.6); ABS Nucleated RBC 0.01 10^3/ul; Eosinophil % 0.2 %; Hematocrit 29.8 % (35-45); Lymphocyte % 17.9 %; Mean Corpuscular Hemoglobin 28.9 pg (27-33); Mean Corpuscular Hgb Conc 33.5 g/dL (31-36); Mean Corpuscular Volume 86.3 fL (80-97); Mean Platelet Volume 7.4 fL (7.5-11.2); Nucleated Red Blood Cells % 0.1 %/100WBC (0.0-0.8); Platelet Count 288 10^3/uL (150-450); Red Blood Count 3.45 10^6/uL (3.63-4.92); Red Cell Distribution Width 18.8 % (12-17); White Blood Count 6.8 10^3/uL (3.8-11.8)
[2023-12-12 14:01] LABS: Albumin 3.2 g/dL (3.2-5.2); Albumin/Globulin Ratio 0.7 (1-3); C Reactive Protein 76.52 mg/L (<8.01); Calcium 8.7 mg/dL (8.6-10.3); Creatinine, Serum 1.11 mg/dL (0.51-0.95); Globulin 4.4 g/dL (2-4); Total Bilirubin 1.1 mg/dL (0.2-1.0); Total Protein 7.6 g/dL (6.4-8.9); eGFR CKD-EPI 56.6 (>60)
[2023-12-12 14:25] LABS: Potassium 2.7 mmol/L (3.5-5.0)
[2023-12-12] MEDS: HYDROmorphone 1 MG/1 ML SYRINGE IV ONE (15:00)
[2023-12-12] MEDS: Iodixanol (CONTRAST) 320 MG/ML 100 ML SDV IV ONE (15:56)
[2023-12-12] MEDS: KCL 20 MEQ/100 ML IVPREMIX 20 MEQ/100 ML BAG IV ONE (16:25)
[2023-12-12] MEDS ORDERED: Albuterol HFA INHALER 8 gm MDI INH PRN (20:04)
[2023-12-12] MEDS ORDERED: Dextrose 50% Syringe 50 ml 25 GM/50 ML SYRINGE IV PUSH PRN (20:07)
[2023-12-12 20:18] LABS: Magnesium 1.5 mg/dL (1.9-2.7)
[2023-12-12] MEDS: KCL 20 MEQ/100 ML IVPREMIX 20 MEQ/100 ML BAG IV SCH (20:23)
[2023-12-12 21:54] LABS: INR 1.39 (0.83-1.13)
[2023-12-12 22:35] LABS: Calcium 8.3 mg/dL (8.6-10.3); Creatinine, Serum 1.05 mg/dL (0.51-0.95); Magnesium 1.5 mg/dL (1.9-2.7); eGFR CKD-EPI 60.5 (>60)
[2023-12-12 22:36] LABS: Body Fluid Appearance Clear; Body Fluid Color Yellow; Body Fluid Source Peritonial Fluid
[2023-12-12 22:49] LABS: Body Fluid Total Nucleated 122 /mcL
[2023-12-12 22:54] LABS: Urine Appearance Clear; Urine Bilirubin Negative (Negative); Urine Blood Negative (Negative); Urine Color Light-Yellow; Urine Glucose Negative (Negative); Urine Ketones Negative (Negative); Urine Nitrite Negative (Negative); Urine Protein Negative (Negative); Urine Specific Gravity 1.029 (1.002-1.030); Urine Urobilinogen Negative (Negative)
[2023-12-12 23:09] LABS: Urine Bacteria Absent /HPF (Absent); Urine Red Blood Cell 1+(3-5/hpf) /HPF (0-Trace); Urine Squamous Epithelial Cell Present /HPF (Absent); Urine White Blood Cell 1+(6-10/hpf) /HPF (0-Trace)
[2023-12-12] MEDS: CMCS: Pravastatin 20 mg TAB (NF) PO SCH (23:21)
[2023-12-12 23:46] LABS: Body Fluid Mono 81 %; Body Fluid Other Cells 7; Body Fluid Total Cells Counted 200
[2023-12-13] MEDS: cefTRIAXone 2 gm/50 mL D5W 2 GM/50 ML BAG IV ONE (02:54)
[2023-12-13] MEDS: Magnesium Sulf 4 GM/100 ML IV 4,000 MG/100 ML BAG IVPB ONE (03:35)
[2023-12-13 06:37] LABS: Albumin 2.5 g/dL (3.2-5.2); Albumin/Globulin Ratio 0.7 (1-3); Creatinine, Serum 0.92 mg/dL (0.51-0.95); Globulin 3.7 g/dL (2-4); Magnesium 2.5 mg/dL (1.9-2.7); Potassium 3.2 mmol/L (3.5-5.0); Total Bilirubin 0.7 mg/dL (0.2-1.0); Total Protein 6.2 g/dL (6.4-8.9); eGFR CKD-EPI 70.8 (>60)
[2023-12-13] MEDS: CMCS: FLUTICAS/UMECLI/VILANT 200-62.5-25 MDI (NF) INH SCH (07:25)
[2023-12-13] MEDS: KCL 20 MEQ/100 ML IVPREMIX 20 MEQ/100 ML BAG IV ONE (08:52)
[2023-12-13] MEDS: Fluticasone NASAL SPRAY 50MCG 16 gm SPRAY BTL BOTH NARES SCH (08:57)
[2023-12-13] MEDS: Heparin 5000 UNITS/ML 1 mL VIAL SUBCUT SCH (08:57)
[2023-12-13 12:11] VITALS: BP 138/89
[2023-12-13] MEDS: Potassium Chlor 20 meq TAB.ER PO ONE (13:31)
[2023-12-14] MEDS ORDERED: cefTRIAXone 2 gm/50 mL D5W 2 GM/50 ML BAG IV SCH (03:00)
[2023-12-14 14:38] LABS: Fluid Type, Protein, Total PERITONEAL FLUID; Glucose, BF 135 mg/dL; Total Protein, BF 2.5 g/dL
[2023-12-14 14:38] LABS: Albumin, BF 1.2 g/dL; Fluid Type, Albumin PERITONEAL FLUID
== END 2023-12-13 14:46 ==
LOC: EDHOLD 11:55 → ED 11:55 → SUATTDRO 19:17 → MEDTELE 12-13 01:44
PROVIDERS: ADMIT Internal Medicine; ATTEND Family Medicine